=== PATIENT | male | born 1990 | race African-American/Black ===

== ENCOUNTER 2020-08-31 11:39 | Emergency (ER) | payer MEDICAID ==
[~2020-08-31] VITALS: Ht 175.3 cm; Wt 86.2 kg
[2020-08-31 12:00] VITALS: BP 131/75
== END 2020-08-31 13:50 | disposition home or self-care (01) ==
LOC: ER 11:39
DX: S60.221A Contusion of right hand, initial encounter (principal); W22.8XXA Striking against or struck by other objects, initial encounter; Y93.89 Activity, other specified; Y92.89 Other specified places as the place of occurrence of the external cause; Y99.8 Other external cause status
CPT/HCPCS: 73130